=== PATIENT | female | born 2000 | race Two or more races ===

== ENCOUNTER 2021-05-15 08:23 | Emergency (ER) | payer OTHER ==
--- NOTE | 2021-05-15 08:48 | EDM.PDOC ---
ED HPI GENERAL MEDICAL PROBLEM - General Stated Complaint: FEVER,SORE THROAT, HEADACHE,RESPIRATORY PROBLEMS Time Seen by Provider: 05/15/21 08:41 - History of Present Illness INITIAL COMMENTS - FREE TEXT/NARRATIVE: Pt is here for cough, sore throat and sinus congestion for the last 2 days. She noted it started shortly after arriving to [place] from [place]. She is here for the [employer]. She noted that a few others in her company are also sick, but not as bad as she is. She has a history of sinusitis and walking pneumonia in the past. She also reports seasonal allergies. She has been taking over the counter cough medicine without relief. She is due to play softball in a few days and needs to make sure she is not contagious. She had chills this morning, but did not check her temperature. Runny and stuffy nose. Headache and sinus congestion. Chest congestion. No ear pain or fullness. No nausea or vomiting. - Related Data Allergies Allergy/AdvReac Type Severity Reaction Status Date / Time shrimp Allergy Swollen Verified 05/15/21 08:34 Tongue Home Meds: Home Meds FLUoxetine [PROzac] 40 mg PO DAILY 05/15/21 [History] Methylphenidate HCl [Ritalin] 10 mg PO BID 05/15/21 [History] Propranolol [Inderal] 20 mg PO DAILY 05/15/21 [History] ED ROS GENERAL - Review of Systems Review Of Systems: Comprehensive ROS is negative, except as noted in HPI. ED EXAM, GENERAL - Physical Exam Exam: See Below Exam Limited By: No Limitations General Appearance: Alert, WD/WN, No Apparent Distress Eye Exam: Bilateral Eye: Normal Inspection Ears: Normal External Exam, Normal Canal, Normal TMs Nose: Normal Inspection Throat/Mouth: Normal Inspection, Normal Lips, Normal Teeth, Normal Gums, Normal Voice, No Airway Compromise Head: Atraumatic, Normocephalic, Sinus Tenderness (maxillary) Neck: Normal Inspection, Supple, Non-Tender. No: Lymphadenopathy (L), Lymphadenopathy (R) Respiratory/Chest: No Respiratory Distress, Lungs Clear, Normal Breath Sounds, No Accessory Muscle Use, Wheezing (occasional) Cardiovascular: Normal Peripheral Pulses, Regular Rate, Rhythm, No Edema, No Murmur GI/Abdominal: Soft, Non-Tender (Female) Exam: Deferred Rectal (Female) Exam: Deferred Back Exam: Normal Inspection, Full Range of Motion Extremities: Normal Inspection, Normal Range of Motion Neurological: Alert, Oriented, Normal Cognition, Normal Gait, No Motor/Sensory Deficits Psychiatric: Normal Affect, Normal Mood Skin Exam: Warm, Dry, Intact, Normal Color, No Rash Lymphatic: No Adenopathy Departure - Departure Time of Disposition: 08:53 Disposition: Home, Self-Care 01 Condition: Good Clinical Impression: Bronchitis Sinusitis Qualifiers: Sinusitis location: maxillary Chronicity: acute Recurrence: non-recurrent Qualified Code(s): J01.00 - Acute maxillary sinusitis, unspecified - Discharge Information *PRESCRIPTION DRUG MONITORING PROGRAM REVIEWED*: Not Applicable *COPY OF PRESCRIPTION DRUG MONITORING REPORT IN PATIENT DRU: Not Applicable Instructions: Sinusitis, Adult, [id number], Acute Bronchitis, Adult, [id number] Additional Instructions: Augmentin twice daily for 10 days Prednisone 40 mg daily for 5 days Continue over the counter medications as needed for symptomatic relief Follow up as needed
== END 2021-05-15 09:18 | disposition home or self-care (01) ==
LOC: DL.ED 08:23
DX: J01.00 Acute maxillary sinusitis, unspecified (principal); J40 Bronchitis, not specified as acute or chronic; Z91.018 Allergy to other foods
CPT/HCPCS: 99283